=== PATIENT | male | born 1990 | race Hispanic/Latino ===

== ENCOUNTER 2017-01-15 16:08 | Emergency (ER) | payer SELFPAY ==
[2017-01-15] MEDS ORDERED: MOTRIN PO ONE (17:47)
[2017-01-15] MEDS ORDERED: TYLENOL PO ONE (17:47)
--- NOTE | 2017-01-15 17:48 | Emergency Department Report ---
ED Headache HPI - General Chief Complaint: Headache Stated Complaint: MINOR HEADACHE Time Seen by Provider: 01/15/17 17:47 Source: patient, old records Exam Limitations: no limitations - History of Present Illness Initial Comments: This is a 26-year-old male. He is previously unknown to me. He does not have a primary care doctor. He denies chronic medical conditions. He presents to the ER complaining of headache. The headache is global, throbbing and frontal. The headache is not sudden or thunderclap in nature. It did not respond intensity within an hour. It is not the worst headache of his life. Patient reports multiple chronic frequent headaches. He reports that within the past month he has developed obese 15 headaches. This headache is not the worse headache of his life. There is no neck pain or neck stiffness. No fevers or chills. No sore throat. No weakness. No blurry vision. No ataxia. Timing/Duration: 24 hours, episodic, waxing and waning Quality: moderate Head Injury Location: frontal Recent Head Trauma: no recent headache/trauma, frequent headaches, chronic headaches Associated Symptoms: denies: confusion, fatigue, facial pain, fever/chills, flushing, loss of consciousness, nausea/vomiting, nasal congestion, nasal drainage, numbness in legs/feet, seizures, sinus infection, stiff neck, vision changes, weakness Home Medications: Ambulatory Orders Acetaminophen [Tylenol Arthritis] 650 mg PO Q4HR PRN #30 tablet.er 01/15/17 Ibuprofen [Motrin] 600 mg PO Q8H PRN #30 tablet 01/15/17 ED Review of Systems ROS: Stated complaint: MINOR HEADACHE Other details as noted in HPI Constitutional: denies: fever Eyes: denies: eye discharge, vision change ENT: denies: epistaxis Respiratory: denies: cough Cardiovascular: denies: chest pain Gastrointestinal: denies: abdominal pain Genitourinary: denies: dysuria Musculoskeletal: denies: back pain Skin: denies: lesions Neurological: headache. denies: weakness, numbness, paresthesias, confusion, abnormal gait, vertigo ED Past Medical Hx - Past Medical History Previous Medical History?: No - Surgical History Past Surgical History?: No - Social History Smoking Status: Never Smoker Substance Use Type: None - Medications Home Medications: Home Medications Medication Instructions Recorded Confirmed Last Taken Type Acetaminophen [Tylenol Arthritis] 650 mg PO Q4HR PRN #30 tablet.er 01/15/17 Unknown Rx Ibuprofen [Motrin] 600 mg PO Q8H PRN #30 tablet 01/15/17 Unknown Rx ED Physical Exam - General Limitations: No Limitations General appearance: alert, in no apparent distress - Head Head exam: Present: atraumatic, normocephalic - Eye Eye exam: Present: normal appearance, PERRL, EOMI, other (visual acuity intact to finger counting, color perception, reading at a close distance). Absent: nystagmus - ENT ENT exam: Present: normal exam, normal orophraynx, mucous membranes moist, TM's normal bilaterally, normal external ear exam, other (there is no mastoid tenderness) - Neck Neck exam: Present: normal inspection, full ROM. Absent: tenderness, meningismus - Respiratory Respiratory exam: Present: normal lung sounds bilaterally. Absent: respiratory distress, wheezes, rales, rhonchi, stridor, chest wall tenderness - Cardiovascular Cardiovascular Exam: Present: regular rate, normal rhythm, normal heart sounds. Absent: systolic murmur, diastolic murmur, rubs, gallop - GI/Abdominal GI/Abdominal exam: Present: soft, normal bowel sounds. Absent: distended, tenderness, guarding, rebound, rigid, pulsatile mass - Rectal Rectal exam: Present: deferred - Extremities Exam Extremities exam: Present: normal inspection, full ROM. Absent: tenderness, calf tenderness - Back Exam Back exam: Present: normal inspection, full ROM. Absent: tenderness, CVA tenderness (R), CVA tenderness (L), muscle spasm, paraspinal tenderness, vertebral tenderness - Neurological Exam Neurological exam: Present: alert, oriented X3, normal gait, other (Extraocular movements intact. Tongue midline. No facial droop. Facial sensation intact to light touch in the V1, V2, V3 distribution bilaterally. 5 and 5 strength in 4 extremities.. Sensation is intact to light touch in 4 extremities.). Absent : motor sensory deficit - Psychiatric Psychiatric exam: Present: normal affect, normal mood - Skin Skin exam: Present: warm, dry, intact, normal color. Absent: rash ED Course Vital Signs 01/15/17 16:20 Temperature 98.2 F Pulse Rate 100 H Respiratory 16 Rate Blood Pressure 143/94 O2 Sat by Pulse 100 Oximetry ED Medical Decision Making - Lab Data Vital Signs 01/15/17 16:20 Temperature 98.2 F Pulse Rate 100 H Respiratory 16 Rate Blood Pressure 143/94 O2 Sat by Pulse 100 Oximetry - Medical Decision Making Differential diagnosis: Migraine headache, tension headache, cluster headache, headache disorder not otherwise specified Assessment plan: 26-year-old male with acute on chronic headaches, he reports getting headaches for months and years. His tachycardia has resolved, he is a GCS of 15, with an NIH score of 0. He felt improved after pain medication. He is suitable to follow up with outpatient primary care or neurology at this time. He will be discharged at this time. Return precautions are reviewed. Critical care attestation.: If time is entered above; I have spent that time in minutes in the direct care of this critically ill patient, excluding procedure time. ED Disposition Clinical Impression: Headache Disposition: [id number] TO HOME OR SELFCARE Is pt being admited?: No Does the pt Need Aspirin: No Condition: Stable Instructions: Acute Headache (ED) Additional Instructions: Take pain medication as directed. Follow-up with the primary care doctor or neurologist within the next 3 weeks. Take the medications as directed. Start keeping a headache diary. for your convenience, you can go to the following lab sites to start keeping a headache diary: http://www.headaches.org/wp-content/uploads//454990605- [email or web address] Return to the ER right away with new pain, worsened pain, migration of pain, fevers, chills, chest pain, confusion, intractable nausea or vomiting, inability to tolerate liquid feeds Referrals: TOMAS BRUNO MD [Primary Care Provider] - 3-5 Days MARYANA HOFFMANN MD [Staff Physician] - 3-5 Days ANDREINA FORREST MD [Staff Physician] - 3-5 Days
[2017-01-15 18:38] VITALS: BP 119/72
== END 2017-01-15 18:42 | disposition home or self-care (01) ==
LOC: ED 16:08
DX: R51 Headache (principal)
CPT/HCPCS: 99282

== ENCOUNTER 2017-06-21 18:34 | Emergency (ER) | payer SELFPAY ==
[2017-06-21 20:33] VITALS: BP 117/65
== END 2017-06-21 20:25 | disposition left against medical advice (07) ==
LOC: ED 18:34
DX: Z53.21 Procedure and treatment not carried out due to patient leaving prior to being seen by health care provider (principal)